=== PATIENT | female | born 1995 | race Caucasian/White ===

== ENCOUNTER 2020-09-23 22:18 | Emergency (ER) | payer MEDICAID ==
[~2020-09-23] VITALS: Ht 157.5 cm; Wt 52.2 kg
--- NOTE | 2020-09-23 22:34 | Emergency Room Report ---
History of Present Illness General Chief Complaint: Female Urogenital Problems Source: Patient Present Illness HPI Is a 24-year-old female with a history of UTI. She presents with chief complaint of urinary complaint. She has frequency, urgency, hesitancy and now slight hematuria. Onset for 2 days. No fever chills. Has mid back pain. She took Pyridium prior to arrival. Denies any other complaint. Allergies: Coded Allergies: LEVOFLOXACIN (Verified Allergy, Unknown, 09/23/20) COVID-19 Screening Contact w/high risk pt: No Experienced COVID-19 symptoms?: No COVID-19 Testing performed [employer]: Yes - DECEMBER 2019 COVID-19 Screening: Positive COVID-19 COVID-19 Testing Source: [facility] Patient History Past Medical History: see triage record, old chart reviewed Past Surgical History: none Pertinent Family History: none Social History: Denies: smoking Last Menstrual Period: september 09 Now: No Immunizations: other Reviewed Nursing Documentation: PMH: Agreed; PSxH: Agreed Nursing Documentation-PMH Past Medical History: No History, Except For Review of Systems Eye: Denies: eye pain, blurred vision ENT: Denies: ear pain, nose congestion, throat swelling Respiratory: Denies: cough, shortness of breath Cardiovascular: Denies: chest pain, palpitations Gastrointestinal: Denies: abdominal pain, diarrhea, nausea, vomiting Genitourinary: Reports: dysuria, frequency, hematuria, urgency Musculoskeletal: Reports: back pain; Denies: joint pain Skin: Denies: rash Neurological: Denies: headache, numbness Endocrine: Denies: increased thirst, increased urine Hematologic/Lymphatic: Denies: easy bruising All Other Systems: negative except mentioned in HPI Physical Exam Vital Signs Date Time Temp Pulse Resp B/P (MAP) Pulse Ox O2 Delivery O2 Flow Rate FiO2 09/23/20 22:22 98.1 102 18 122/77 (92) 95 Room Air Vitals normal Sp02 EP Interpretation: reviewed, normal General Appearance: well appearing, no apparent distress, alert Head: normocephalic, atraumatic Eyes: bilateral eye PERRL, bilateral eye EOMI ENT: hearing grossly normal, normal pharynx Neck: full range of motion, supple, no meningismus Respiratory: chest non-tender, lungs clear, normal breath sounds Cardiovascular #1: regular rate, rhythm, no murmur Gastrointestinal: normal bowel sounds, non tender, no mass, no organomegaly, no bruit, non-distended Musculoskeletal: back normal, normal range of motion, gait/station normal Psychiatric: mood/affect normal Medical Decision Making Diagnostic Impression: Primary Impression: UTI (urinary tract infection) Qualified Codes: N30.00 - Acute cystitis without hematuria ER Course This patient presents with symptoms consistent with UTI. No evidence of pyelonephritis or sepsis. Dose of antibiotics given here. Will discharge home. Last Vital Signs Date Time Temp Pulse Resp B/P (MAP) Pulse Ox O2 Delivery O2 Flow Rate FiO2 09/23/20 22:22 98.1 102 18 122/77 (92) 95 Room Air Status: improved Disposition: HOME, SELF-CARE Condition: Stable Scripts Ibuprofen* (MOTRIN*) 600 Mg Tablet 600 MG ORAL Q6H PRN for For Pain, #30 TAB 0 Refills Prov: Oneal Horton MD 09/23/20 Cephalexin* (KEFLEX*) 500 Mg Capsule 500 MG ORAL TID, #21 CAP Prov: Oneal Horton MD 09/23/20 Patient Instructions: Urinary Tract Infection Additional Instructions: increase fluids. Follow-up with your doctor in 3 to 7 days for recheck if not better. Return if symptoms worsen. Oneal Horton MD Sep 23, 2020 22:34
[2020-09-23 22:37] LABS: APPEARANCE,URINE CLOUDY; BILIRUBIN, URINE NEGATIVE (NEGATIVE); GLUCOSE, URINE (UA) NEGATIVE (NEGATIVE); KETONES,URINE NEGATIVE (NEGATIVE); LEUKOCYTE ESTERASE ,URINE 3+ (NEGATIVE); NITRITE,URINE POSITIVE (NEGATIVE); PH,URINE 5 (4.5-8.0); PROTEIN,URINE 3+ (NEGATIVE); UROBILINOGEN,URINE NORMAL MG/DL (0.0-1.0)
[2020-09-23] MEDS ORDERED: HYDROcodone/Acetamin 5/325 tab ORAL ONE (22:45)
[2020-09-23] MEDS ORDERED: Cephalexin 500mg cap ORAL ONE (22:45)
[2020-09-23 22:54] VITALS: BP 122/77
--- NOTE | 2020-09-23 22:56 | NUR ---
ED Nurse Note: Pt is AAO x4, ambulated into ED. C/O urinary tract infection symptoms. C/O left flank pain and pelvic pain. Pt reports she took AZO prior to arrival to ED. Pt has been seen by provider, urine sent to lab, and meds given.
[2020-09-23 23:05] LABS: COLOR,URINE YELLOW
[2020-09-23] MEDS ORDERED: IBUPROFEN600 M1 ORAL (23:17)
[2020-09-23] MEDS ORDERED: CEPHALEXIN500 MG ORAL (23:17)
--- NOTE | 2020-09-23 23:20 | NUR ---
ER DISCHARGE NOTE: Patient is cleared to be discharged per ER MD, pt is aaox4, on room air, with stable vital signs. pt was given d/c and prescription instructions, pt was able to verbalize understanding, pt id band removed. pt is able to ambulate with steady gait. pt took all belongings.
[2020-09-23 23:22] VITALS: BP 122/77
== END 2020-09-23 23:23 | disposition home or self-care (01) ==
LOC: EMR 22:37
DX: N30.00 Acute cystitis without hematuria (principal); Z88.1 Allergy status to other antibiotic agents; Z86.16 Personal history of COVID-19
CPT/HCPCS: 81003; 87086; 87181; Z7502; 99283